=== PATIENT | male | born 1960 | race Two or more races ===

== ENCOUNTER 2018-09-10 15:27 | Emergency (ER) | payer MEDICAID ==
--- NOTE | 2018-09-10 16:42 | ED Physician Chart ---
ED Chief Complaint/HPI - Patient Information Date Seen:: 09/10/18 Time Seen:: 16:20 Chief Complaint:: left elbow laceration History of Present Illness:: About 1430 patient fell about 4 feet from a ladder landing on rocks. He complains of left elbow laceration and soreness of the left arm. No other injuries. Patient is right-hand dominant. Allergies:: Allergies Allergy/AdvReac Type Severity Reaction Status Date / Time No Known Allergies Allergy Verified 09/10/18 16:04 Vitals:: Vital Signs - 8 hr 09/10/18 16:05 Temp 99.1 F HR 89 RR 16 BP 125/92 O2 Sat % 97 Historian:: Patient, Family Member ED Review of Systems - Review of Systems General/Constitutional: No fever, No chills Skin: Skin lesions Head: No headache Eyes: No loss of vision ENT: No earache Neck: No neck pain Cardio Vascular: No chest pain, No palpitations Pulmonary: No SOB GI: No nausea, No vomiting, No diarrhea G/U: No dysuria Musculoskeletal: Bone or joint pain Endocrine: No polyuria Psychiatric: No prior psych history ED Past Medical History - Past Medical History Past Medical History: HTN, Dyslipidemia, Other (upper lipidemia) Family History: HTN Social History: Smoker, Alcohol, Other (smokes 10 cigarettes a day and drinks alcohol on the weekends) Surgical History: Appendectomy Psychiatricy History: None Medication: Reviewed Family Medical History - Family Member Mother History Unknown: Yes ED Physical Exam - Physical Examination Head: Atraumatic Eyes: Lids, conjuctiva normal, PERRL Other Skin comments:: 4 1/2 cm laceration posterior left elbow ENMT: External ears, nose nl Neck: No nuchal rigidity Respiratory: Nl effort/Exclusion, Clear to Auscultation Cardio Vascular: RRR, No murmur, gallop, rubs, NL S1 S2 GI: No tenderness/rebounding/guarding, No organomegaly, No hernia Other Extremities comments:: See above under skin; range of motion left elbown left elbowfull range of motio Neuro/Psych: Alert/oriented, No focal deficits Misc: Normal back ED Assessment - Procedures Procedures:: Skin cleansed with Betadine solution; 1% Xylocaine for local anesthesia; laceration digitally explored and 2-3 about 2 mm foreign bodies removed; I was unsure if these were chips of bone or gravel foreign bodies; laceration could be digitally explored for about 1-1/2 cm proximal to the laceration without further disturbing the tissue and no more foreign bodies were palpable; laceration irrigated with about 150 mL normal saline using a 10 ml syringe with 18-gauge needle on it; laceration closed with 3.0 chromic gut sutures. X-rays taken after suturing showed retained foreign bodies or bony fragments. I requested patient return here in one week when I will be here for wound check. Patient informed of retained foreign bodies. ED Septic Shock - . Is Septic Shock (SBP<90, OR Lactate>4 mmol\L) present?: No - <6hrs of presentation: Vital Signs: Vital Signs - 8 hr 09/10/18 16:05 Temp 99.1 F HR 89 RR 16 BP 125/92 O2 Sat % 97 ED Reassessment (Disposition) - Reassessment Reassessment Condition:: Improved - Diagnosis Diagnosis:: 4-1/2 cm left posterior laceration with retained foreign bodies - Aftercare/Follow up Instructions Aftercare/Follow-Up Instructions:: Refer to Discharge Instructions Medication Prescribed:: Keflex 500 mg 4 times a day for 1 week - Patient Disposition Discharge/Transfer:: Home Condition at Disposition:: Stable, Improved
--- NOTE | 2018-09-11 08:30 | Diagnostic Imaging Report ---
Left elbow (3 views) HISTORY: Pain Marked soft tissue swelling over the posterior elbow region. Small air collections noted within the soft tissues. Numerous small radiodensities which may be calcifications noted in the soft tissues adjacent to the olecranon process. No acute fractures are seen. IMPRESSION: 1. Extensive abnormal soft tissue changes with swelling and small air collections posterior to the olecranon process and posterior lower humerus. Finding should be correlated with nuclear with physical examination 2. Multiple small radiodensities suggesting calcifications within the soft tissues adjacent to the posterior margin of the olecranon process. Again, the finding should be correlated clinically. If indicated, a CT scan would provide additional assessment.
== END 2018-09-10 17:20 | disposition home or self-care (01) ==
LOC: ER 15:27
DX: S51.022A Laceration with foreign body of left elbow, initial encounter (principal); I10 Essential (primary) hypertension; F17.210 Nicotine dependence, cigarettes, uncomplicated; Z90.49 Acquired absence of other specified parts of digestive tract; W11.XXXA Fall on and from ladder, initial encounter; Y93.89 Activity, other specified; Y92.89 Other specified places as the place of occurrence of the external cause; Y99.8 Other external cause status
CPT/HCPCS: 99284; 96372; 12032; 73080; 90715; J0690